=== PATIENT | male | born 1955 | race Caucasian/White ===

== ENCOUNTER 2019-11-03 08:50 | Outpatient (CLI) | payer MEDICARE | END 2019-11-03 08:51 | disposition home or self-care (01) | PROVIDERS: ATTEND Family Medicine | DX: R13.10 Dysphagia, unspecified (principal) | CPT/HCPCS: 74230 ==

== ENCOUNTER 2020-09-02 19:30 | Outpatient (CLI) | payer MEDICARE | END 2020-09-02 19:31 | disposition home or self-care (01) | LOC: SLEEPLAB 19:30 | PROVIDERS: ATTEND Family Medicine | DX: G47.33 Obstructive sleep apnea (adult) (pediatric) (principal); R53.83 Other fatigue; R09.89 Other specified symptoms and signs involving the circulatory and respiratory systems; R51.9 Headache, unspecified; R06.83 Snoring; R35.1 Nocturia; G47.00 Insomnia, unspecified; G47.10 Hypersomnia, unspecified; E66.9 Obesity, unspecified; Z68.41 Body mass index [BMI] 40.0-44.9, adult | CPT/HCPCS: 95811 ==

== ENCOUNTER 2023-03-26 10:56 | Outpatient (CLI) | payer MEDICARE ==
[2023-03-26 12:32] LABS: #Basophils 0.1 10x3/uL (0.0-0.2); #Eosinphils 0.3 10x3/uL (0.0-0.5); #Monocytes 0.8 10x3/uL (0.0-1.1); #Neutrophils 5.3 10x3/uL (1.5-8.4); %Basophils 0.9 % (0.0-2.0); %Eosinophils 3.2 % (0.0-6.0); %Lymphocytes 24.2 % (18.0-47.0); %Monocytes 9.5 % (0.0-10.0); %Neutrophils 61.8 % (40.0-75.0); Hemoglobin 14.4 g/dL (13.5-17.5); Mean Corpuscular HGB CONC 32.5 g/dL (32.0-36.0); Mean Corpuscular Hemoglobin 28.8 pg (27.0-33.0); Mean Corpuscular Volume 88.6 fl (81.2-95.1); Mean Platelet Volume 11.5 fl (7.4-10.4); Platelet Count 278 10x3/uL (150-450); RBC Distribution Width 13.7 % (11.5-14.5); White Blood Cell (WBC) Count 8.5 10x3/uL (3.5-10.5)
[2023-03-26 12:56] LABS: Prothrombin Time 10.6 sec (9.5-12.1)
[2023-03-26 13:08] LABS: Anion Gap 17 mmol/L (10-20); BUN (Urea Nitrogen) 17 mg/dL (8.4-25.7); Calc. Creatinine Clearance 0 mL/min (70-130); Calcium 9.6 mg/dL (7.8-10.44); Carbon Dioxide 25 mmol/L (23-31); Chloride 101 mmol/L (98-107); Estimated GFR 91; Glucose 92 mg/dL (80-115); Potassium 4.4 mmol/L (3.5-5.1); Sodium 139 mmol/L (136-145)
== END 2023-03-26 10:57 | disposition home or self-care (01) ==
LOC: LABBT 10:56
PROVIDERS: ATTEND Orthopaedic Surgery
DX: Z01.818 Encounter for other preprocedural examination (principal); M17.11 Unilateral primary osteoarthritis, right knee
CPT/HCPCS: 80048; 85025; 85610; 87081; 93005; 93010

== ENCOUNTER 2023-03-31 05:29 | Inpatient (IN) | payer MEDICARE ==
[2023-03-26 11:23] VITALS: BMI 43.2
[2023-03-31] MEDS ORDERED: Tranexamic Acid 1,000 MG/10 ML VIAL ONE (06:00)
[2023-03-31] MEDS ORDERED: Sodium Chloride 0.9% 100 ML ONE ×2 (06:05→06:52)
[2023-03-31] MEDS ORDERED: VANCOMYCIN 2 GRAM/500 ML BAG 2 GM in Premix Bag 1 BAG IVPB SCH (06:15)
[2023-03-31] MEDS ORDERED: Bupivacaine PF 0.5% 30 ML VIAL ONE ×2 (06:23→06:40)
[2023-03-31] MEDS ORDERED: Midazolam HCl 2 mg/2 ml Vial ONE (06:40)
[2023-03-31] MEDS ORDERED: Lidocaine 1% (PF) 30 ML VIAL ONE (06:40)
[2023-03-31] MEDS ORDERED: fentaNYL 50 mcg/mL 1 mL Vial ONE ×6 (06:40→10:58)
[2023-03-31] MEDS ORDERED: EPINEPHrine 1 MG/ML AMP ONE (06:40)
[2023-03-31] MEDS ORDERED: Acetaminophen 325 MG TAB PO PRN (06:50)
[2023-03-31] MEDS ORDERED: Fentanyl 100 MCG/2 ML VIAL SLOW IVP PRN ×2 (06:50)
[2023-03-31] MEDS ORDERED: Ondansetron PF 4 MG/2 ML Vial IVP PRN ×2 (06:50→07:30)
[2023-03-31] MEDS ORDERED: Zolpidem Tartrate 5 MG TAB PO PRN ×2 (06:50→07:30)
[2023-03-31] MEDS ORDERED: Promethazine HCl 25 MG/ML VIAL IM PRN ×2 (06:50→07:30)
[2023-03-31] MEDS ORDERED: HYDROcodone/Acetaminophen 10/325 mg Tablet PO PRN ×3 (06:50→07:30)
[2023-03-31] MEDS ORDERED: diphenhydrAMINE 25 MG CAP PO PRN (06:50)
[2023-03-31] MEDS ORDERED: CEFAZOLIN 2 GM VIAL ONE (06:52)
[2023-03-31] MEDS ORDERED: fentaNYL 50 mcg/mL 1 mL Vial SLOW IVP PRN ×2 (07:02)
[2023-03-31] MEDS ORDERED: PROPOFOL 200 MG/20 ML VIAL ONE (07:12)
[2023-03-31] MEDS ORDERED: Ondansetron PF 4 MG/2 ML Vial ONE (07:12)
[2023-03-31] MEDS ORDERED: PHENYLEPHRINE-NS 100 MCG/ML 10 ML SYRINGE ONE (07:12)
[2023-03-31] MEDS ORDERED: ePHEDrine Sulfate 50 MG/10 ML VIAL ONE (07:12)
[2023-03-31] MEDS ORDERED: Dexamethasone 20 MG/5 ML VIAL ONE (07:12)
[2023-03-31] MEDS ORDERED: Ketorolac Tromethamine 30 MG/ML VIAL ONE (07:12)
[2023-03-31] MEDS ORDERED: traMADol HCl 50 MG TAB PO PRN ×2 (07:30)
[2023-03-31] MEDS ORDERED: Ropivacaine 0.2% 550 ML 550 ML NERVE BLCK SCH (07:30)
[2023-03-31] MEDS ORDERED: fentaNYL PF 100 MCG/2 ML SYRINGE ONE (07:49)
[2023-03-31] MEDS ORDERED: HCTHIAZID PO SCH (09:00)
[2023-03-31] MEDS ORDERED: [UNRECOGNIZED DRUG - OTHER] PO SCH (09:00)
[2023-03-31] MEDS ORDERED: OLMESARTAN PO SCH (09:00)
[2023-03-31] MEDS ORDERED: AMLODIPIN PO SCH (09:00)
[2023-03-31] MEDS ORDERED: MELATONIN 5 MG PO SCH (09:00)
[2023-03-31] MEDS ORDERED: Non-Formulary Item 1 EACH (Multivit-Min/Fa/Lycopen/Lutein [Centrum Silver Men Tablet] 1 E PO SCH (09:00)
[2023-03-31] MEDS ORDERED: Atorvastatin Calcium 20 MG TAB PO SCH (09:00)
[2023-03-31] MEDS ORDERED: Gabapentin 400 MG CAP PO SCH (09:00)
[2023-03-31] MEDS ORDERED: Non-Formulary Medication 1 EACH PO PRN (10:04)
[2023-03-31] MEDS ORDERED: Promethazine HCl 25 MG/ML VIAL IM/IV PRN (10:15)
[2023-03-31] MEDS ORDERED: Ondansetron HCl/PF 4 MG/2 ML Vial IVP PRN (10:15)
[2023-03-31] MEDS: Ketorolac Tromethamine 30 MG/ML VIAL IVP SCH ×4 (13:10→22:55)
[2023-03-31] MEDS: fentaNYL 50 mcg/mL 1 mL Vial SLOW IVP PRN (13:17)
[2023-03-31] MEDS ORDERED: Ketorolac Tromethamine 30 MG/ML VIAL IVP SCH (14:00)
[2023-03-31] MEDS: Aspirin 81 mg Enteric Coated Tablet PO SCH ×2 (14:26→20:09)
[2023-03-31] MEDS: Gabapentin 400 MG CAP PO SCH ×2 (14:26→20:09)
[2023-03-31] MEDS: Ferrous Gluconate 324 MG TAB PO SCH ×2 (14:26→20:09)
[2023-03-31] MEDS: Multivitamin W/ Minerals 1 TAB PO SCH (14:26)
[2023-03-31] MEDS: Senokot S 8.6-50 MG TAB PO SCH ×2 (14:28→20:09)
[2023-03-31] MEDS: Tamsulosin HCl 0.4 MG CAP PO SCH (14:28)
[2023-03-31] MEDS: Venlafaxine HCl XR 75 MG CAP PO SCH (14:28)
[2023-03-31] MEDS: CEFAZOLIN 2 GM in Sodium Chloride 0.9% 100 ML IVPB SCH ×2 (14:53→20:09)
[2023-03-31] MEDS: Sodium Chloride 0.9% 1,000 ML IV SCH ×3 (14:54→21:50)
[2023-03-31] MEDS: HYDROcodone/Acetaminophen 10/325 mg Tablet PO PRN ×2 (16:28→20:11)
[2023-03-31] MEDS: Atorvastatin Calcium 20 MG TAB PO SCH (20:10)
[2023-03-31] MEDS: Melatonin 3 MG TAB PO SCH (20:10)
[2023-04-01] MEDS: HYDROcodone/Acetaminophen 10/325 mg Tablet PO PRN ×3 (01:45→15:04)
[2023-04-01] MEDS: Ketorolac Tromethamine 30 MG/ML VIAL IVP SCH ×4 (05:19→22:53)
[2023-04-01 06:25] LABS: Hemoglobin 11.7 g/dL (14.0-18.0); Mean Corpuscular HGB CONC 30.8 g/dL (32.0-36.0); Mean Corpuscular Hemoglobin 28.1 pg (27.0-31.0); Mean Corpuscular Volume 91.1 fl (78.0-98.0); Mean Platelet Volume 11.3 fL (7.4-10.4); Platelet Count 243 10x3/uL (130-400); Red Blood Cell (RBC) Count 4.17 mill/uL (4.70-6.10); White Blood Cell (WBC) Count 14.5 10x3/uL (4.8-10.8)
[2023-04-01] MEDS: Aspirin 81 mg Enteric Coated Tablet PO SCH ×2 (08:34→20:18)
[2023-04-01] MEDS: Tamsulosin HCl 0.4 MG CAP PO SCH (08:34)
[2023-04-01] MEDS: Senokot S 8.6-50 MG TAB PO SCH ×2 (08:34→20:18)
[2023-04-01] MEDS: Hydrochlorothiazide 25 MG TAB PO SCH (08:34)
[2023-04-01] MEDS: Multivitamin W/ Minerals 1 TAB PO SCH (08:34)
[2023-04-01] MEDS: Venlafaxine HCl XR 75 MG CAP PO SCH (08:34)
[2023-04-01] MEDS: Gabapentin 400 MG CAP PO SCH ×2 (08:34→20:19)
[2023-04-01] MEDS: Ferrous Gluconate 324 MG TAB PO SCH ×2 (08:35→20:23)
[2023-04-01] MEDS: Losartan 25 MG TAB PO SCH (08:35)
[2023-04-01] MEDS: Amlodipine 5 MG TAB PO SCH (08:35)
[2023-04-01] MEDS: Sodium Chloride 0.9% 1,000 ML IV SCH ×2 (10:37→22:54)
[2023-04-01] MEDS: fentaNYL 50 mcg/mL 1 mL Vial SLOW IVP PRN (12:04)
[2023-04-01] MEDS: Atorvastatin Calcium 20 MG TAB PO SCH (20:19)
[2023-04-01] MEDS: Melatonin 3 MG TAB PO SCH (20:19)
[2023-04-02] MEDS: Ketorolac Tromethamine 30 MG/ML VIAL IVP SCH (06:43)
[2023-04-02 07:54] VITALS: BP 142/78; TEMP 98.3
[2023-04-02] MEDS: Senokot S 8.6-50 MG TAB PO SCH (09:17)
[2023-04-02] MEDS: Hydrochlorothiazide 25 MG TAB PO SCH (09:18)
[2023-04-02] MEDS: Tamsulosin HCl 0.4 MG CAP PO SCH (09:18)
[2023-04-02] MEDS: Gabapentin 400 MG CAP PO SCH (09:20)
[2023-04-02] MEDS: Multivitamin W/ Minerals 1 TAB PO SCH (09:20)
[2023-04-02] MEDS: Ferrous Gluconate 324 MG TAB PO SCH (09:20)
[2023-04-02] MEDS: Venlafaxine HCl XR 75 MG CAP PO SCH (09:20)
[2023-04-02] MEDS: Aspirin 81 mg Enteric Coated Tablet PO SCH (09:20)
[2023-04-02] MEDS: Losartan 25 MG TAB PO SCH (09:20)
[2023-04-02] MEDS: Amlodipine 5 MG TAB PO SCH (09:20)
[2023-04-02] MEDS: HYDROcodone/Acetaminophen 10/325 mg Tablet PO PRN (09:21)
[2023-04-02] MEDS: Sodium Chloride 0.9% 1,000 ML IV SCH (09:26)
== END 2023-04-02 13:37 | disposition home or self-care (01) | DRG 470 ==
LOC: SDC 05:29 → SURG B 11:11 → SDC 11:16 → SURG B 11:16 → OBSVTOIN 04-02 06:54
PROVIDERS: ADMIT Orthopaedic Surgery; ATTEND Orthopaedic Surgery
PROC: 0SRC0J9 Replacement of Right Knee Joint with Synthetic Substitute, Cemented, Open Approach (ICD-10-PCS; principal; 2023-03-31)
DX: M17.11 Unilateral primary osteoarthritis, right knee (principal); I10 Essential (primary) hypertension; Z98.890 Other specified postprocedural states; Z96.652 Presence of left artificial knee joint
CPT/HCPCS: 36415; 85027; 96365; 96375; 96376; A4306; C1713; C1776; G0378; J0171; J1100; J1885; J2001; J2250; J2405; J2704; J2795; J3010; J3370; J3490; J7050; S0020

== ENCOUNTER 2024-03-31 17:11 | Observation (INO) | payer MEDICARE ==
[2024-03-31 18:03] LABS: #Basophils 0.03 10x3/uL (0.0-0.2); #Eosinphils Less than 0.03 10x3/uL (0.0-0.7); %Basophils 0.2 % (0.0-1.0); %Lymphocytes 5.3 % (21.0-51.0); %Monocytes 0.5 % (0.0-10.0); %Neutrophils 93.6 % (42.0-75.0); Hematocrit 42.5 % (42.0-52.0); Hemoglobin 13.9 g/dL (14.0-18.0); Mean Corpuscular HGB CONC 32.7 g/dL (32.0-36.0); Mean Corpuscular Hemoglobin 29.6 pg (27.0-31.0); Mean Corpuscular Volume 90.6 fL (78.0-98.0); Platelet Count 272 10x3/uL (130-400); RBC Distribution Width 13.2 % (11.5-14.5); Red Blood Cell (RBC) Count 4.69 mill/uL (4.70-6.10)
[2024-03-31 18:18] LABS: ALT (SGPT) 26 U/L (8-55); AST (SGOT) 31 U/L (5-34); Albumin 3.8 g/dL (3.4-4.8); Alkaline Phosphatase 95 U/L (40-110); Anion Gap 18 mmol/L (10-20); BUN (Urea Nitrogen) 17 mg/dL (8.4-25.7); Bilirubin, Total 0.4 mg/dL (0.2-1.2); Calc. Creatinine Clearance 0 mL/min (70-130); Calcium 9.7 mg/dL (7.8-10.44); Carbon Dioxide 24 mmol/L (23-31); Chloride 104 mmol/L (98-107); Estimated GFR 83; Globulin 3.7 g/dL (2.4-3.5); Glucose 153 mg/dL (80-115); Potassium 4.7 mmol/L (3.5-5.1); Protein, Total 7.5 g/dL (5.8-8.1); Sodium 141 mmol/L (136-145)
[2024-03-31 18:24] LABS: Troponin I Less than 0.010 ng/mL (< 0.028)
[2024-03-31] MEDS ORDERED: Ondansetron ODT 4 MG TAB PO PRN (18:36)
[2024-03-31] MEDS ORDERED: Acetaminophen 650 MG Suppository PR PRN (18:36)
[2024-03-31] MEDS ORDERED: Ondansetron PF 4 MG/2 ML Vial IVP PRN (18:36)
[2024-03-31] MEDS ORDERED: Acetaminophen 325 MG TAB PO PRN (18:36)
[2024-03-31 19:11] LABS: Magnesium 1.9 mg/dL (1.6-2.6)
[2024-03-31] MEDS: Sodium Chloride 0.9% 1,000 ML IV SCH (22:14)
[2024-03-31] MEDS: Magnesium 2 GM/50 ML(in water) 2 GM in Premix 1 BAG IVPB SCH (22:15)
[2024-03-31] MEDS: Famotidine 20 MG TAB PO SCH (22:16)
[2024-03-31] MEDS: HYDROcodone/Acetaminophen 5/325 mg Tablet PO PRN (22:16)
[2024-04-01 01:48] VITALS: BMI 44.0
[2024-04-01] MEDS: HYDROcodone/Acetaminophen 10/325 mg Tablet PO PRN (03:19)
[2024-04-01 04:50] LABS: #Basophils Less than 0.03 10x3/uL (0.0-0.2); #Eosinphils Less than 0.03 10x3/uL (0.0-0.7); %Basophils 0.1 % (0.0-1.0); %Lymphocytes 7.9 % (21.0-51.0); %Monocytes 2.9 % (0.0-10.0); %Neutrophils 88.7 % (42.0-75.0); Hematocrit 38.6 % (42.0-52.0); Hemoglobin 12.9 g/dL (14.0-18.0); Mean Corpuscular HGB CONC 33.4 g/dL (32.0-36.0); Mean Corpuscular Hemoglobin 29.9 pg (27.0-31.0); Mean Corpuscular Volume 89.6 fL (78.0-98.0); Platelet Count 259 10x3/uL (130-400); RBC Distribution Width 13.1 % (11.5-14.5); Red Blood Cell (RBC) Count 4.31 mill/uL (4.70-6.10)
[2024-04-01 05:16] LABS: Hemoglobin A1c 5.6 % (4.0-6.0)
[2024-04-01 05:22] LABS: Anion Gap 14 mmol/L (10-20); BUN (Urea Nitrogen) 19 mg/dL (8.4-25.7); Calc. Creatinine Clearance 159 mL/min (70-130); Carbon Dioxide 23 mmol/L (23-31); Cardiac Risk 4.1 (Less than 4.5); Chloride 106 mmol/L (98-107); Cholesterol 132 mg/dl (< 200 Desired); Estimated GFR 92; Glucose 128 mg/dL (80-115); HDL Cholesterol 32 mg/dL (>60 Neg Risk); LDL Cholesterol, Calculated 89 mg/dL; Potassium 4.3 mmol/L (3.5-5.1); Sodium 139 mmol/L (136-145); Triglycerides 56 mg/dL (Less than 150)
[2024-04-01] MEDS ORDERED: Metoprolol Tartrate 25 MG TAB PO SCH (15:00)
[2024-04-01] MEDS: Propranolol HCl 20 MG TAB PO SCH (16:26)
[2024-04-01] MEDS: Melatonin 3 MG TAB PO SCH (20:49)
[2024-04-01] MEDS: Aspirin 81 mg Enteric Coated Tablet PO SCH (20:50)
[2024-04-01] MEDS: Gabapentin 400 MG CAP PO SCH (20:50)
[2024-04-01] MEDS: Atorvastatin Calcium 20 MG TAB PO SCH (20:51)
[2024-04-01] MEDS: Propranolol 60 MG TAB PO SCH (20:51)
[2024-04-01] MEDS ORDERED: Metoprolol Tartrate 50 MG TAB PO SCH (21:00)
[2024-04-02] MEDS: Multivitamin W/ Minerals 1 TAB PO SCH (09:30)
[2024-04-02] MEDS: Tamsulosin HCl 0.4 MG CAP PO SCH (09:32)
[2024-04-02] MEDS: Venlafaxine HCl XR 75 MG CAP PO SCH (09:32)
[2024-04-02] MEDS: Zinc Sulfate 220 MG CAP PO SCH (09:32)
[2024-04-02 12:32] VITALS: BP 142/69; TEMP 97.8
[2024-04-02] MEDS ORDERED: Propranolol 40 MG TAB PO SCH (21:00)
[2024-04-03] MEDS ORDERED: Amlodipine 5 MG TAB PO SCH (09:00)
== END 2024-04-02 13:37 | disposition home or self-care (01) ==
LOC: ERS 17:11 → 2SW 20:25
PROVIDERS: ADMIT Student in an Organized Health Care Education/Training Program; ATTEND Internal Medicine
PROC: B246ZZZ Ultrasonography of Right and Left Heart (ICD-10-PCS; principal; 2024-03-31)
DX: I47.19 Other supraventricular tachycardia (principal); I10 Essential (primary) hypertension; E78.5 Hyperlipidemia, unspecified; G25.0 Essential tremor; I35.0 Nonrheumatic aortic (valve) stenosis; N40.0 Benign prostatic hyperplasia without lower urinary tract symptoms; Z98.890 Other specified postprocedural states; R01.1 Cardiac murmur, unspecified; Z79.82 Long term (current) use of aspirin; Z79.899 Other long term (current) drug therapy; Z96.653 Presence of artificial knee joint, bilateral; Z90.49 Acquired absence of other specified parts of digestive tract; D72.829 Elevated white blood cell count, unspecified
CPT/HCPCS: 36415; 80048; 80053; 80061; 83036; 83735; 84145; 84443; 84484; 85025; 93005; 93306; 96374; G0378; J3475; J7050